=== PATIENT | female | born 1985 | race Caucasian/White ===

== ENCOUNTER 2016-08-09 18:26 | Emergency (ER) | payer OTHER ==
[~2016-08-09 18:26] MED LIST: CITA40TA13 PO; LISI10TA2 PO; PHEN-777 PO; SULF1TAB7 PO
== END 2016-08-09 19:10 | disposition left against medical advice (07) ==
LOC: SED 18:26
DX: K08.89 Other specified disorders of teeth and supporting structures (principal); Z53.21 Procedure and treatment not carried out due to patient leaving prior to being seen by health care provider

== ENCOUNTER 2016-08-20 14:12 | Emergency (ER) | payer OTHER ==
[~2016-08-20] VITALS: Ht 157.5 cm; Wt 66.8 kg
[2016-08-20 14:22] VITALS: BP 151/109; PULSE 100; RESP 18; O2SAT 97
--- NOTE | 2016-08-20 14:31 | ED.REPORT ---
HPI-Rash / Abscess Date of Service Aug 20, 2016 ED Provider: Alejandro Steele MD Patient is a 31 year old female who present to the ED complaining of an abscess on her right thumb onset 4 days ago. Associated symptoms include thumb pain and redness. She denies fever, chills, vomiting, or any other symptoms. She recently took penicillin for a tooth infection. She had an assessment 2 weeks ago at [facility] for her drug use. She has used Suboxone previously and found it helpful. She is around many people who use and reports that she "uses just to use". Nursing Notes Stated Complaint: RIGHT HAND ABSCESS Chief Complaint: Skin Rash/Abscess Nursing Notes Reviewed: Yes Allergies: Coded Allergies: No Known Allergies (Verified Allergy, Unknown, 02/23/14) Scheduled Citalopram (Citalopram) 40 Mg Tablet 40 MG PO DAILY Lisinopril (Lisinopril) 10 Mg Tablet 10 MG PO DAILY Sulfamethoxazole/Trimeth 800-160 mg (Bactrim DS) 1 Each Tablet 1 TABLET PO BID Sulfamethoxazole/Trimeth 800-160 mg (Bactrim DS) 1 Each Tablet 1 TABLET PO BID Scheduled PRN Phenazopyridine (Phenazopyridine) 200 Mg Tablet 200 MG PO TID PRN PRN For Pain General Time Seen by MD: 14:29 Chief Complaint Abscess Hx Obtained From: Patient Arrived By: Walk-in Onset Occurred: 4 days ago Similar Sx Previous: Yes Past Medical History Past Medical History Anxiety Hx of stress reaction Hx of substance abuse Reports: Hypertension Past Surgical History Reports: (x2 ), Cholecystectomy Smoking History Current Some Day Smoker Social History Alcohol Use: "Social" Drug Use: IV drugs, Meth, Other Ambulatory Status Independent Review of Systems + R thumb redness Constitutional: Denies: Chills, Fever GI: Denies: Vomiting Musculoskeletal: Reports: Joint pain (R thumb) Complete sys rev & neg: except as marked. Physical Exam Initial Vital Signs Vital Signs (First) Date Time Temp Pulse Resp B/P Pulse Ox O2 Delivery O2 Flow Rate FiO2 08/20/16 14:22 36.9 100 18 151/109 97 Room Air Initial VS: Reviewed Head / Eyes: Atraumatic, Normocephalic Neck: Full range of motion Respiratory: No respiratory distress Abdomen / GI: Soft, Non-tender Neurologic: Alert, Oriented, Nonfocal Psychiatric: Mood/affect normal, Behavior normal, Normal thought content General/Constitutional: Awake, Alert, Well appearing, Well developed Abscess Notes: over dorsum of R hand along thumb 1x2 cm erythematous, warm, tender mass present with no fluctuance. US reveals small abscess. Patient opted to not drain. Abscess #1 Location/Condition: Positive: Small Interpretation & Diagnostics US bedside: Abscess on R hand Re-Eval/Medical Decision Re-Evaluation/Progress : Time of Eval: 15:14 Re-Evaluation/Progress Note: Discussed treamtent options with patient. She requests to not drain abscess and instead go home with antibiotics and use hot compress. Discussed plan for discharge. Patient understands and agrees with plan. All questions addressed at this time. Counseled Regarding: Diagnosis, Need for follow-up, When/why to return to ED Discharge & Departure Impression: Primary Impression: Cellulitis Site of cellulitis: extremity Site of cellulitis of extremity: upper extremity Laterality: right Qualified Code: L03.113 - Cellulitis of right upper limb Additional Impression: Abscess Disposition: Home Discharge Condition All VS Reviewed: Yes Condition: Stable Patient Instructions: Cellulitis (ED) Additional Instructions: You have a skin infection and a small abscess. We talked about draining the abscess right now but you have opted to treat more conservatively which seems reasonable to me. I recommend hot packs multiple times throughout the day and Bactrim DS twice daily for a week. If things are getting worse, especially if you have high fever or feel ill, return to the emergency department for further evaluation and treatment. I strongly encourage you to take whatever steps necessary to address your heroin use as this will certainly ruin your life if left unchecked. Referrals: [facility] Scribe Attestation Portions of this note were transcribed by Khalida Wei. I, Dr. Steele personally performed the history, physical exam and medical decision-making; I reviewed and confirmed the accuracy of the information in the transcribed note. Signed by: Khalida Wei 08/20/16, [id number] copies to: [facility] Alejandro Steele MD Aug 20, 2016 14:31 KHALIDA WEI Aug 20, 2016 15:07
[2016-08-20] MEDS ORDERED: SULF1TAB7 PO (15:14)
== END 2016-08-20 15:20 | disposition home or self-care (01) ==
LOC: SED 14:12
DX: L03.113 Cellulitis of right upper limb (principal); L02.413 Cutaneous abscess of right upper limb; I10 Essential (primary) hypertension; F19.20 Other psychoactive substance dependence, uncomplicated; F17.200 Nicotine dependence, unspecified, uncomplicated

== ENCOUNTER 2016-10-23 00:30 | Emergency (ER) | payer OTHER ==
[2016-10-23 00:58] VITALS: BP 161/111; PULSE 116; RESP 18; O2SAT 98
--- NOTE | 2016-10-23 02:29 | ED.REPORT ---
HPI-General Illness Date of Service Oct 23, 2016 ED Provider: Antwan Raymond MD Patient is a 31 year old female with a history of IV heroin abuse presents to the ED requesting Suboxone, with last heroin use 6 hours prior to arrival. The patient has been using heroin for the past 2 years. The patient has previously used Suboxone on the street and states that she was once clean for 8 days. The patient had an assessment at [facility] for outpatient treatment in July, but she quit going after she found out that she could not get Suboxone through their facility. She has previously had infections associated with injection sites, most recently her right hand. This was treated with antibiotics. Patient states that she skipped her period this past month, but this happens to her frequently. She does not believe that she is currently . The patient is currently homeless, living out of her car and couch surfing. Patient reports nausea and abdominal discomfort that began yesterday. She denies any withdrawal symptoms. Nursing Notes Stated Complaint: REQUEST DR RAYMOND Chief Complaint: Substance Abuse Nursing Notes Reviewed: Yes Allergies: Coded Allergies: No Known Allergies (Verified Allergy, Unknown, 02/23/14) Scheduled Buprenorphine HCl/Naloxone HCl (Suboxone 8 mg-2 mg Sl Film) 1 Each Film 1 EACH SL BID Citalopram (Citalopram) 40 Mg Tablet 40 MG PO DAILY Lisinopril (Lisinopril) 10 Mg Tablet 10 MG PO DAILY Sulfamethoxazole/Trimeth 800-160 mg (Bactrim DS) 1 Each Tablet 1 TABLET PO BID Sulfamethoxazole/Trimeth 800-160 mg (Bactrim DS) 1 Each Tablet 1 TABLET PO BID Scheduled PRN Phenazopyridine (Phenazopyridine) 200 Mg Tablet 200 MG PO TID PRN PRN For Pain General Time Seen by : 01:03 Chief Complaint Other (heroin withdrawal) Hx Obtained From: Patient Arrived By: Walk-in Sudden in Onset?: No Onset Occurred: 5 - 8 hours ago Symptom Duration: Since onset Severity: Current: No pain currently Severity: Maximum: No pain Recent Healthcare: No recent doctor visit, No recent hospitalization Similar Sx Previous: Yes Past Medical History Past Medical History Anxiety Hx of stress reaction Hx of substance abuse Reports: Hypertension Past Surgical History Reports: , Cholecystectomy Smoking History Current Some Day Smoker Social History Alcohol Use: "Social" Drug Use: IV drugs, Meth, Other Other Social History: Poor social support, Local resident, Homeless Ambulatory Status Independent Review of Systems Full Review of Systems Constitutional: Denies: Chills, Fever GI: Reports: Abdominal pain, Nausea, Denies: Diarrhea Musculoskeletal: Denies: Extremity pain, Extremity swelling Neurologic: Denies: Seizure, Shaking Complete sys rev & neg: except as marked. Physical Exam Vital Signs Vital Signs Date Time Temp Pulse Resp B/P Pulse Ox O2 Delivery O2 Flow Rate FiO2 10/23/16 00:58 36.4 116 18 161/111 98 Room Air Initial VS: Reviewed, Vital signs abnormal Head / Eyes: Atraumatic, Normocephalic, PERRL ENT: Conjunctiva normal, No scleral icterus Neck: Supple, Full range of motion Neurologic: Alert, Oriented, Nonfocal Psychiatric: Mood/affect normal, Behavior normal, Normal thought content General/Constitutional: Awake, Alert, No acute distress no signs of withdrawal Respiratory / Chest: Breath sounds NL, Breath sounds = bilat, No respiratory distress, No rales, No rhonchi, No wheezing Cardiovascular: Regular rhythm, Heart sounds NL, No murmurs Heart Rate / Rhythm: Positive: Tachycardia Abdomen: Soft, Non-tender, No guarding, No rebound Skin: Warm, Dry Rash / Lesion Pattern: Positive: Track singh (but no signs of active infection) Re-Eval/Medical Decision Med Decision/Clinical Course This patient uses IV heroin and methamphetamine. She has started the process of getting outpatient treatment. She was given a 5 day prescription of Suboxone and the Priority Access Appointment Line for [facility] for a follow- up appointment this week. Source of Hx: Old records Time of Eval: 03:00 Patient Status: Condition improved Re-Evaluation/Progress Note: Patient understands and agrees with the plan to be discharged home. She will be discharged with a Suboxone prescription. Discharge instructions and follow-up at [facility] discussed. All questions were addressed. Return to the ED warnings given. Counseled Regarding: Diagnosis, Need for follow-up, When/why to return to ED Discharge & Departure Primary Impression: Opioid dependence with withdrawal Additional Impression: Methamphetamine abuse Disposition: Home Discharge Condition All VS Reviewed: Yes Condition: No Change Patient Instructions: Buprenorphine/Naloxone (By mouth) Additional Instructions: Do not use any more heroin or methamphetamine. 24 hours after your last heroin use, you can start Suboxone 8/2 tabs, one dissolved orally twice daily, #10 prescribed. Call the [facility] Priority Access Appointment Line at [phone] first thing Monday morning for an appointment to see one of us this week. Referrals: [facility] Scribe Attestation Portions of this note were transcribed by Anabela Suazo. I, Dr. Raymond personally performed the history, physical exam and medical decision-making; I reviewed and confirmed the accuracy of the information in the transcribed note. Signed by: Ramona Ortega, 10/23/2016 0324 Antwan Raymond MD Oct 23, 2016 02:29 Anabela Suazo Oct 23, 2016 02:36
[2016-10-23] MEDS ORDERED: BUPR1FIL3 SL (02:32)
== END 2016-10-23 02:44 | disposition home or self-care (01) ==
LOC: SED 00:30
DX: F11.23 Opioid dependence with withdrawal (principal); F15.10 Other stimulant abuse, uncomplicated; I10 Essential (primary) hypertension; F17.200 Nicotine dependence, unspecified, uncomplicated; Z59.0 Homelessness